=== PATIENT | female | born 1995 | race Caucasian/White ===

== ENCOUNTER 2024-02-12 03:48 | Emergency (ER) | payer OTHER, SELFPAY ==
--- NOTE | 2024-02-12 04:19 | PC.NURSE ---
[employer] offered phone number for pt's Dad. Attempted to reach him by police no answer. [phone]
[2024-02-12 04:20] VITALS: BP 126/77; PULSE 60; RESP 18; TEMP 36.4; O2SAT 98; BMI 30.7
--- NOTE | 2024-02-12 04:26 | ED_ITS ---
HPI - Back Pain/Injury General Stated Complaint: threw out back Time Seen by Provider: 02/12/24 04:26 History of Present Illness HPI Narrative: Patient is a 28-year-old female without any significant past medical history presents to the emergency department from home for evaluation of low back pain. States that she was playing we sports yesterday and felt like she had a muscle spasm, denies any trauma or falls denies any numbness weakness tingling to the lower extremity denies any bowel or urinary incontinence or retention. States that she just feels like she ?sprained her back. She is able to stand bear weight ambulate unassisted here in the emergency department. Denies any other injuries Related Data Previous Rx's Medication Instructions Recorded pseudoephedrine HCl 30 mg tablet 30 mg PO Q6H PRN nasal congestion 07/09/23 (Sudafed) #30 tabs diazepam 5 mg tablet (Valium) 5 mg PO BID PRN muscle spasm 3 02/12/24 days #9 tabs prednisone 20 mg tablet 40 mg (2 x 20 mg) PO DAILY 3 days 02/12/24 #6 tabs Allergies Allergy/AdvReac Type Severity Reaction Status Date / Time clavulanic acid Allergy Intermediate Verified 07/09/23 16:52 [From Augmentin] amoxicillin [AMOXICILLIN] Allergy Unknown Unverified 07/09/23 16:52 Review of Systems Review of Systems Narrative: General: Denies fever, chills, weight loss HEENT: Denies headache, eye drainage, eye irritation, head trauma, sore throat, voice change Cardiovascular: Denies any chest pain, palpitations, shortness of breath, tachycardia Respiratory: Denies any shortness of breath, cough, wheeze, stridor GI/: Denies any abdominal pain, nausea, vomiting, diarrhea, bright red blood per rectum, melanotic stools, urinary frequency, urinary retention, dysuria, hematuria MSK: Positive low back pain Skin: Denies any rashes, lesions, discoloration Neuro: Denies any headache, lightheadedness, dizziness, fainting, weakness Psych: Denies SI/HI Patient History Social History Smoking Status: Unknown if ever smoked Smoking Status: Unknown if ever smoked Exam Narrative Exam Narrative: General: Cooperative, comfortable, well-developed, not in acute distress HEENT: Normocephalic, atraumatic, PERRLA, normal sclera, eyelids normal, Neck: Active full range of motion, atraumatic Chest: Normal to inspection, negative crepitus, no overlying erythema ecchymosis Respiratory: Normal respiratory effort, not in acute respiratory distress, clear to auscultation bilaterally negative cough, wheeze, tachypnea, rhonchi, rales Cardiology: Regular rate rhythm negative gallop, murmur, rubs GI/: Normal to inspection, soft, nonrigid, no tenderness to palpation, exam deferred MSK: Full range of active range of motion of all 4 extremities, atraumatic, there is no tenderness to palpation of the midline thoracic or lumbar spine, there is mild tenderness to palpation of the paraspinal muscles left side worse than the right. No overlying erythema ecchymosis is able to stand bear weight ambulate unassisted here in the emergency department, neurovascularly intact bilateral lower extremities. Skin: No rashes lesions noted Neuro: Alert awake oriented x3, moves all 4 extremities spontaneously, cranial nerves intact, able to answer all questions appropriately follows commands appropriately Psych: Cooperative, negative suicidal or homicidal ideations MDM - Back Pain/Injury Differential Diagnosis Differential diagnosis: Likely lumbar radiculopathy and strain of lumbar region MDM Narrative Medical decision making narrative: Patient is a 28-year-old female history of low back pain presents after exacerbation of this. States that she was playing sports and was moving her upper body quite a bit and caused a muscle spasm, sprain. Patient denies any red flags for cauda equina is able to stand bear weight ambulate unassisted here in the emergency department. On physical exam patient with paraspinal muscle tenderness to palpation of the lumbar region no other gross deformities. She was sent home with steroids and analgesics and instructed follow up with primary care and orthopedic surgery in outpatient setting. She was given strict return precautions safe for discharge home with outpatient follow up Discharge Plan Departure Patient Disposition: Home Clinical Impression: Lumbar strain Activity Restrictions/Additional Instructions: Follow up with primary care and orthopedic surgery Please read the discharge instructions sheet carefully and bring all papers to all doctor follow-up visits, as it may contain information that your doctor may want to see. Disease processes change and evolve, if your symptoms worsen or if you develop any new symptoms that are concerning to you please return for evaluation. Your evaluation today does not show any evidence of any life- threatening/serious illnesses requiring admission to the hospital or surgery. Please follow-up with your doctor for re-evaluation in approximately 1 day. Seek immediate medical attention for any worrisome symptoms. Prescriptions: New diazepam [Valium] 5 mg tablet 5 mg PO BID PRN (Reason: muscle spasm) 3 Days Qty: 9 0RF prednisone 20 mg tablet 40 mg PO DAILY 3 Days Qty: 6 0RF No Action pseudoephedrine HCl [Sudafed] 30 mg tablet 30 mg PO Q6H PRN (Reason: nasal congestion) Qty: 30 0RF Referrals: Miscellaneous,Doctor, MD [Primary Care Provider] - Stand Alone Forms: Patient Portal/API/Survey
[2024-02-12] MEDS: DEXAMETHASONE 10 MG/ML VIAL PO (04:42)
[2024-02-12] MEDS: diazePAM 5 MG TABLET PO (04:42)
== END 2024-02-12 04:48 | disposition home or self-care (01) ==
PROVIDERS: Emergency Provider Student in an Organized Health Care Education/Training Program; Family Provider Family Medicine
DX: S39.012A Strain of muscle, fascia and tendon of lower back, initial encounter (principal); X50.1XXA Overexertion from prolonged static or awkward postures, initial encounter
CPT/HCPCS: 99283; J1100